=== PATIENT | male | born 1960 | race Caucasian/White ===

== ENCOUNTER 2017-01-08 19:27 | Emergency (ER) | payer OTHER ==
[~2017-01-08] VITALS: Ht 180.3 cm; Wt 83.9 kg
--- NOTE | ~2017-01-08 | CR114 ---
[facility] A Service of [facility] RADIOLOGY TEXT RESULTS PATIENT: CHAD NIETO LOCATION: [place] : 58 UNIT #: [id number] AGE: [address]: Zach Camp DO SEX: M ORDER DR: [id number] [facility] [address] [place], [place] [address] [id number] E MR#: [id number] Acc #: [id number] NAME: CHAD NIETO : 1960 SEX: M STUDY DATE/TIME: 01/08/2017 20:52 UNIT: [place] ROOM: STUDY DESCRIPTION: CR Finger 2 View 5Th Lt Attending Physician: Zach Camp D.O. Ordering Physician: Zach Camp D.O. Primary Care Physician: Ulysses Crawford M.D. MEDICAL IMAGING REPORT This report is preliminary unless electronic signature is present EXAM Right fifth finger 3 views, 01/08/2017 2052 hours CLINICAL HISTORY 56-year-old suffered finger laceration due to falling metal today. Pain and swelling. COMPARISON None. FINDINGS 3 views of the right fifth finger are performed with a gauze bandage present. There is a laceration along the palmar aspect near the PIP joint but no fracture or foreign body. IMPRESSION 1. Soft tissue laceration palmar aspect of the fifth finger near the PIP joint. There is no fracture, dislocation or foreign body. 2. There is some bowing deformity of the distal fifth metacarpal consistent with an old healed fracture. Dictated by... Tanvi Patricio M.D. THIS IS AN ELECTRONICALLY VERIFIED REPORT Tanvi Patricio M.D. at 01/09/2017 9:28 AM LIZETH/roderick TD: 01/09/2017 00:31 JOB #: [id number] [facility] A Service of [facility] RADIOLOGY TEXT RESULTS PATIENT: CHAD NIETO LOCATION: [place] : 58 UNIT #: [id number] AGE: [address]: Zach Camp DO SEX: M ORDER DR: MEDICAL IMAGING REPORT Page 1 of 1 COPY
== END 2017-01-08 21:22 ==
LOC: CED 19:27
DX: S61.216A Laceration without foreign body of right little finger without damage to nail, initial encounter (principal); F17.200 Nicotine dependence, unspecified, uncomplicated; Z88.6 Allergy status to analgesic agent; W22.8XXA Striking against or struck by other objects, initial encounter; Y92.69 Other specified industrial and construction area as the place of occurrence of the external cause
CPT/HCPCS: 73140; 96372; 99284; J0696